=== PATIENT | male | born 1970 | race Caucasian/White ===

== ENCOUNTER 2017-01-29 15:40 | Emergency (ER) | payer BC, OTHER ==
[~2017-01-29] VITALS: Ht 172.7 cm; Wt 88.0 kg
--- NOTE | 2017-01-29 16:28 | PD ---
HPI Chief Complaint: Respiratory Symptoms Time Seen by Provider: 16:24 Travel History International Travel<30 days: No Contact w/Intl Traveler<30days: No Traveled to known affect area: No History of Present Illness HPI 46-year-old male brought in under the Schneider act. Patient was reported to appointment regarding his throat in front of his ex- threatening to kill himself, but didn't want to make a mess. He was Schneider acted feeling that he was suicidal threat to himself or others. Patient denies any medical problems currently. He has no medication history. He did have some drinks prior to this visit. Patient states he was awakened in his home by 6 police officers this morning. Patient has no known drug allergies. [facility] Social History Alcohol Use: Yes Tobacco Use: Yes Substance Use: No Allergies-Medications (Allergen,Severity, Reaction): Coded Allergies: No Known Allergies (Unverified , 01/29/17) Review of Systems Except as stated in HPI: all other systems reviewed are Neg General / Constitutional: No: Fever Eyes: No: Visual changes HENT: No: Headaches Cardiovascular: No: Chest Pain or Discomfort Respiratory: No: Shortness of Breath Gastrointestinal: No: Abdominal Pain Genitourinary: No: Dysuria Musculoskeletal: No: Pain Skin: No Rash Neurologic: No: Weakness Psychiatric: No: Depression Endocrine: No: Polydipsia Hematologic/Lymphatic: No: Easy Bruising Physical Exam Narrative GENERAL: Patient appears in no acute distress. SKIN: Warm and dry. Normal color. Normal turgor. No signs of trauma. HEAD: Atraumatic. Normocephalic. EYES: Pupils equal and round. No scleral icterus. No injection or drainage. ENT: No nasal bleeding or discharge. Mucous membranes pink and moist. Pharynx is clear. NECK: Trachea midline. Neck is supple. CARDIOVASCULAR: Regular rate and rhythm. RESPIRATORY: No accessory muscle use. Clear to auscultation. Breath sounds equal bilaterally. MUSCULOSKELETAL: Extremities without clubbing, cyanosis, or edema. No obvious deformities. NEUROLOGICAL: Awake and alert. No obvious cranial nerve deficits. Motor grossly within normal limits. Five out of 5 muscle strength in the arms and legs. Normal speech. PSYCHIATRIC: Appropriate mood and affect; insight and judgment normal. [facility] Medical Decision Making Medical Screen Exam Complete: Yes Emergency Medical Condition: Yes Differential Diagnosis Schneider act. Suicidal ideation. EtOH Narrative Course Patient is medically stable at time of exam. Psychiatric labs were ordered per protocol. Patient is medically clear for psychiatric evaluation. Diagnosis Primary Impression: Suicidal ideations Additional Impression: Medical clearance for psychiatric admission Condition: Stable Brooks Garrison Jan 29, 2017 16:28
[2017-01-29 16:39] VITALS: BP 140/100; PULSE 125; RESP 20; TEMP 99.2; O2SAT 96
[2017-01-29 17:36] LABS: BASOPHIL % 0.6 % (0.0-2.0); EOSINOPHIL % 0.4 % (0.0-4.0); HEMATOCRIT 48.4 % (39.0-51.0); HEMO FLAGS DIFF FINAL; LYMPH % 31.6 % (9.0-44.0); LYMPHOCYTE # 2.1 TH/MM3 (1.0-4.8); MEAN CELL VOLUME 94.5 FL (80.0-100.0); MONO % 7.5 % (0.0-8.0); NEUT % 59.9 % (16.0-70.0); PLATELET COUNT 295 TH/MM3 (150-450); RED BLOOD COUNT 5.13 MIL/MM3 (4.50-5.90); RED CELL DISTRIBUTION WIDTH 12.8 % (11.6-17.2); WHITE BLOOD COUNT 6.6 TH/MM3 (4.0-11.0)
[2017-01-29 17:44] LABS: AMPHETAMINE, URINE NEG (NEG); BARBITURATES, URINE NEG (NEG); COCAINE, URINE NEG (NEG)
[2017-01-29 17:58] LABS: ANION GAP 10 MEQ/L (5-15); AST (GOT) 52 U/L (15-37); BICARBONATE 24.8 MEQ/L (21.0-32.0); BLOOD UREA NITROGEN 8 MG/DL (7-18); CHLORIDE 105 MEQ/L (98-107); GLOMERULAR FILTRATION RATE 83 ML/MIN (>89); POTASSIUM 3.7 MEQ/L (3.5-5.1); SODIUM (NA) 140 MEQ/L (136-145)
[2017-01-29 18:01] LABS: ALKALINE PHOSPHATASE 138 U/L (45-117); ALT (GPT) 98 U/L (12-78); TOTAL BILIRUBIN ADULT 0.4 MG/DL (0.2-1.0)
[2017-01-29 19:22] VITALS: BP 165/101; PULSE 103; RESP 18
[2017-01-29] MEDS ORDERED: LISINOPRIL 10 MG TAB PO ONE (19:45)
[2017-01-29] MEDS ORDERED: LORazepam 0.5 MG TAB PO ONE (19:45)
[2017-01-29 22:18] VITALS: BP 139/72; PULSE 90; RESP 18; O2SAT 98
[2017-01-30 03:14] VITALS: BP 143/77; PULSE 75; RESP 18; O2SAT 98
== END 2017-01-30 03:52 ==
LOC: NEPJ 15:40
DX: R45.851 Suicidal ideations (principal); Z72.0 Tobacco use
CPT/HCPCS: 80053; 80307; 85025; 99284